=== PATIENT | female | born 1945 | race Caucasian/White ===

== ENCOUNTER 2025-09-28 14:39 | Observation (INO) ==
[2025-09-28] MEDS: SODIUM CHLORIDE 0.9% 500 ML IV SCH (15:27)
--- NOTE | 2025-09-28 15:31 | Emergency Department Note ---
Impression & Plan Syncope, Anemia, CHI (closed head injury) ED Provider Note NAME: SCOTT LIZARRAGA AGE: 80 SEX: F : 1945 ARRIVES VIA: Walk-In INFORMANT: Patient, ED PROVIDER(S): Tunde Cortes MD CHIEF COMPLAINT: Syncope MEDICAL DECISION MAKING: Patient presents due to concern for syncope. IV was established and blood work was obtained. Patient does have prior history of orthostatic hypotension but currently not hypotensive at the bedside. Patient did have a CT head and chest x-ray performed the patient did had a fall and head strike. Patient with a normal white count hemoglobin of 9.3 with a normal platelet count. The patient's kidney function is unremarkable. Patient with mild hyponatremia 134. Magnesium 1.6. Troponin negative. Patient CT head and chest x-ray are unremarkable. I did speak with Dr. Vasques and the patient was admitted for evaluation for syncope. Discussion w/ other healthcare providers: None Prior /Outside records reviewed: None Differential diagnosis: Vasovagal event, dehydration, infection, hypoglycemia, electrolyte abnormalities, arrhythmia, pulmonary embolism, seizure among others were considered. Diagnostics, as interpreted by me: ECG: Normal sinus rhythm, rate of 67, normal intervals, normal axis, T wave inversions in the lateral and high lateral leads. No obvious STEMI. Cardiac monitoring: An order was placed for continuous cardiac monitoring. The monitor shows a rate of 69 with sinus rhythm. Patient was placed on pulse oximetry Medical decision rules: Hart head CT rule Imaging studies: I informally interpreted the patient's chest x-ray does not show obvious pneumonia, cardiomegaly noted with formal report to follow. HPI: Patient presents due to concern for syncope. The patient reportedly was walking around her kitchen getting breakfast together when she passed out and fell striking her head on the tile floor. The patient reports that she was seen at [facility] had some blood work completed and was told that she may benefit from a colonoscopy as she had a mild change in her hemoglobin from 9.8-9.3. Patient reportedly may have had some occasional slurred speech this morning. She denied any prodromal symptoms. No nausea vomiting or diarrhea. PAST MEDICAL HISTORY: See Below PAST SURGICAL HISTORY: See Below SOCIAL HISTORY: See Below HOME MEDICATIONS: See Below ALLERGIES: See Below VITALS: See Below PHYSICAL EXAMINATION: GENERAL: NAD, non-toxic. EYE EXAM: Normal conjunctiva. PERRL, no anisocoria and EOM's grossly intact w/o pain. OROPHARYNX: Moist mucus membranes, grossly normal dentition. NECK: Trachea midline, no stridor. LUNGS: Clear to auscultation. Normal chest wall mechanics. HEART: NSR, no MRG. ABDOMEN: Abdomen soft, non-tender, no masses, no rebound or guarding. BACK: No CVA TTP. SKIN: No rashes and no bruising. UPPER EXTREMITIES: Upper extremities are grossly normal. LOWER EXTREMITIES: Grossly normal, no edema. NEURO EXAM: Awake and alert, follows commands, no obvious facial asymmetry, normal speech, moves all 4 extremities. 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 Other transient cerebral ischemic attacks and related syndromes Impacted cerumen of right ear Shortness of breath Chest pain Medical History Primary osteoarthritis, right ankle and foot DM w/o complication type II Social History Smoking Status: Never smoker Hx Alcohol Use: No Hx Substance Use: No Preferred Language: Panamanian Communication Ability: 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: No Beliefs That Will Affect Care: None Current Living Situation: Spouse and Family Current Living Situation Comment: Lives with daughter and Other Information That Helps Us Care for You: No Feels Safe at Home: Yes Safety Concerns: Feels Safe At This Time Assistive Devices: Cane and Walker Assistive Devices Comment: doesn't use but has it Allergies Allergies Allergy/AdvReac Type Severity Reaction Status Date / Time No Known Drug Allergies Allergy Unknown Verified 09/28/25 16:34 Home Meds Home Medications Medication Instructions Recorded Confirmed aspirin 81 mg tablet,delayed 81 mg PO DAILY 06/10/24 09/28/25 release carvedilol 25 mg tablet (Coreg) 25 mg PO BID 06/10/24 09/28/25 cholecalciferol (vitamin D3) 25 25 mcg PO DAILY 06/10/24 09/28/25 mcg (1,000 unit) capsule furosemide 20 mg tablet (Lasix) 20 mg PO DAILY 06/10/24 09/28/25 glipizide 2.5 mg tablet, extended 2.5 mg PO DAILY 06/10/24 09/28/25 release 24 hr losartan 100 mg tablet 100 mg PO DAILY 06/10/24 09/28/25 magnesium 200 mg tablet 400 mg PO DAILY 06/10/24 09/28/25 metformin 1,000 mg tablet 1,000 mg PO BID 06/10/24 09/28/25 potassium chloride 10 mEq 10 meq PO DAILY 06/10/24 09/28/25 capsule,extended release simvastatin 40 mg tablet 40 mg PO DAILY 06/10/24 09/28/25 omeprazole 40 mg capsule,delayed 40 mg PO BID 06/16/24 09/28/25 release cyanocobalamin (vitamin B-12) 1,000 mcg subcut MONTHLY 09/28/25 09/28/25 1,000 mcg/mL injection solution hydralazine 10 mg tablet 10 mg PO TID 09/28/25 09/28/25 Previous Rx's Medication Instructions Recorded syringe with needle 3 mL 25 x 5/8" #10 ea 10/06/24 (BD Eclipse Luer-Dimitry) carbidopa 25 mg-levodopa 100 mg See Rx Instructions PO .COMPLEX 07/21/25 tablet (Sinemet) #120 tabs Results & Data (ED) Vital Signs Vital Signs - 24 hr 09/28/25 14:45 09/28/25 15:14 09/28/25 15:24 Temperature 36.5 C Temperature Source Temporal Artery Scan Pulse Rate 66 63 Pulse Rate [Apical] Respiratory Rate 15 Respiratory Effort / Characteristics Non-Labored Spontaneous Respiratory Depth Normal Respiratory Pattern Regular Blood Pressure 128/75 Blood Pressure [Right Arm] Blood Pressure Mean 92 Blood Pressure Mean [Right Arm] Pulse Oximetry 98 98 Oxygen Delivery Method Room Air Room Air Sepsis Recent Fever Within 48 Hours No Sepsis New/Unexplained Change in Mental Status No Sepsis Action Taken by Nursing No Action Required 09/28/25 16:30 09/28/25 17:30 Temperature Temperature Source Pulse Rate Pulse Rate [Apical] 62 62 Respiratory Rate 16 16 Respiratory Effort / Characteristics Respiratory Depth Respiratory Pattern Blood Pressure Blood Pressure [Right Arm] 185/86 H 191/89 H Blood Pressure Mean Blood Pressure Mean [Right Arm] 119 123 Pulse Oximetry 98 97 Oxygen Delivery Method Room Air Room Air Sepsis Recent Fever Within 48 Hours Sepsis New/Unexplained Change in Mental Status Sepsis Action Taken by Residential Medications Current Medication List: was personally reviewed by me Laboratory Data Attestation: I reviewed the patient's lab results. 09/29/25 05:42 09/29/25 05:42 Lab Results 09/28/25 Range/Units 15:20 WBC 6.57 (4.8-10.8) K/ul RBC 3.86 L (4.20-5.40) M/uL Hgb 9.3 L (12.0-16.0) g/dL Hct 30.4 L (37.0-47.0) % MCV 78.8 L (80.0-100.0) fL MCH 24.1 L (25.0-34.0) pg MCHC 30.6 L (32.0-36.0) g/dL RDW Std Deviation 47.0 H (36.4-46.3) fL RDW Coeff of Louisa 16.5 H (11.5-14.5) % Plt Count 247 (130-400) K/uL MPV 10.4 (9.4-12.4) fL Immature Gran % (Auto) 0.6 % Neut % (Auto) 79.6 % Lymph % (Auto) 9.4 % [place] % (Auto) 8.5 % Eos % (Auto) 1.1 % Baso % (Auto) 0.8 % Neut # (Auto) 5.23 (1.40-6.50) K/uL Lymph # (Auto) 0.62 L (1.20-3.40) K/uL [place] # (Auto) 0.56 (0.11-0.59) K/uL Eos # (Auto) 0.07 (0.00-0.50) K/uL Baso # (Auto) 0.05 (0.00-0.20) K/uL Immature Gran # (Auto) 0.04 (0.01-0.20) K/uL Sodium 134 L (136-145) mmol/L Potassium 4.4 (3.5-5.1) mmol/L Chloride 96 L (98-107) mmol/L Carbon Dioxide 27 (21-32) mmol/L Anion Gap 11 (3-11) BUN 21 (6-23) mg/dl Creatinine 1.09 (0.6-1.2) mg/dl Est Cr Clr Drug Dosing Not Reportable eGFR 51.68 BUN/Creatinine Ratio 19.3 (10-20) Glucose 254 H (70-99(Fasting)) mg/dl Calcium 9.4 (8.6-10.3) mg/dl Magnesium 1.6 L (1.7-2.4) mg/dl Total Bilirubin 0.5 (0.2-1.0) mg/dl AST 21 (13-39) U/L ALT 6 L (7-52) U/L Alkaline Phosphatase 55 (34-104) U/L Troponin I High Sens 10.7 (0-14) pg/ml Total Protein 6.9 (6.0-8.3) gm/dl Albumin 4.1 (3.4-5.0) gm/dl Globulin 2.8 (2.5-4.0) gm/dl Albumin/Globulin Ratio 1.5 (0.9-2) TSH 1.337 (0.300-4.500) uIu/ml Administered Medications Aspirin (Aspirin 81 Mg Ectab) 81 mg PO DAILY [facility] Stop: 10/29/25 08:59 Last Admin: 09/29/25 08:05 Dose: 81 mg Documented By: OSCAR Carbidopa/Levodopa (Carbidopa/Levodopa 25/100mg Tab) 0.5 tab PO HS HERIBERTO Stop: 10/28/25 22:29 Last Admin: 09/28/25 22:50 Dose: 0.5 tab Documented By: MG Carbidopa/Levodopa (Carbidopa/Levodopa 25/100mg Tab) 1 tab PO BID@0900,1300 [facility] Stop: 10/29/25 08:59 Last Admin: 09/29/25 08:07 Dose: 1 tab Documented By: OSCAR Carvedilol (Carvedilol 25 Mg Tab) 25 mg PO BID HERIBERTO Stop: 10/28/25 22:13 Last Admin: 09/29/25 08:06 Dose: 25 mg [place]ed [place]: [facility]: 09/28/25 22:50 Dose: 25 mg Documented By: MG Heparin Sodium (Porcine) (Heparin Sod 5,000 Unit/0.5 Ml Vial) 5,000 units SQ Q12 [facility]IBERTO Stop: 10/28/25 22:13 Last Admin: 09/29/25 08:09 Dose: Not Given Documented By: [facility]: 09/28/25 22:51 Dose: Not Given Documented By: MG Hydralazine HCl (Hydralazine 10 Mg Tab) 10 mg PO TID HERIBERTO Stop: 10/28/25 22:13 Last Admin: 09/29/25 08:04 Dose: 10 mg Documented By: [facility]: 09/28/25 22:50 Dose: 10 mg Documented By: MG Sodium Chloride (Nss) 1,000 mls @ 75 mls/hr IV .[id number] [facility] Stop: 10/01/25 22:13 Last Admin: 09/28/25 22:51 Dose: 75 mls/hr Documented By: MG Insulin Aspart (Insulin Aspart Per Unit Charge) 0 units SC ACHS HERIBERTO Stop: 10/28/25 22:13 Last Admin: 09/28/25 22:51 Dose: Not Given Documented By: MG Losartan Potassium (Losartan Potassium 50 Mg Tab) 100 mg PO DAILY [facility] Stop: 10/29/25 08:59 Last Admin: 09/29/25 08:06 Dose: 100 mg Documented By: [facility] Magnesium Oxide (Magnesium Oxide 400 Mg Tab) 400 mg PO DAILY [facility]IBERTO Stop: 10/29/25 08:59 Last Admin: 09/29/25 08:07 Dose: 400 mg Documented By: [facility] Metformin HCl (Metformin Hcl 500 Mg Tab) 1,000 mg PO BIDM HERIBERTO Stop: 10/29/25 07:59 Last Admin: 09/29/25 08:05 Dose: 1,000 mg Documented By: [facility] Pantoprazole Sodium (Pantoprazole 40 Mg Tab) 40 mg PO BID HERIBERTO Stop: 10/28/25 22:29 Last Admin: 09/29/25 08:05 Dose: 40 mg Documented By: [facility] Admin: 09/28/25 22:50 Dose: 40 mg Documented By: MG Potassium Chloride (Potassium Chloride 10 Meq Tabcr) 10 meq PO DAILY [facility] Stop: 10/29/25 08:59 Last Admin: 09/29/25 08:25 Dose: 10 meq Documented By: OSCAR Simvastatin (Simvastatin 40 Mg Tab) 40 mg PO DAILY [facility] Stop: 10/29/25 08:59 Last Admin: 09/29/25 08:07 Dose: 40 mg Documented By: OSCAR Vitamin D (Cholecalciferol 25 Mcg (1000 Units) Tab) 25 mcg PO DAILY [facility] Stop: 10/29/25 08:59 Last Admin: 09/29/25 08:04 Dose: 25 mcg Documented By: OSCAR Discontinued Medications Hydralazine HCl (Hydralazine Hcl 20 Mg/Ml Vial) 10 mg IV NOW STA Stop: 09/28/25 18:12 Last Admin: 09/28/25 18:16 Dose: 10 mg Documented By: EUN Sodium Chloride (Nss) 500 mls @ 999 mls/hr IV .Q31M HERIBERTO Stop: 09/28/25 16:00 Last Infusion: 09/28/25 16:01 Dose: Infused Documented By: Admin: 09/28/25 15:27 Dose: 999 mls/hr Documented By: EUN Imaging Data Radiologist's Impression: Chest X-Ray 09/28/25 15:24 SINGLE VIEW CHEST CLINICAL HISTORY: Syncope FINDINGS: An AP, portable, upright chest radiograph is obtained. No prior studies are available for comparison at the time of dictation. The examination is degraded by portable technique and apical lordotic positioning. The heart is mildly enlarged noting atherosclerotic calcification of the thoracic aorta. The pulmonary vasculature is noncongested. There is bibasilar scarring/atelectasis. No airspace consolidation or large pleural effusion is identified. No pneumothorax is seen. The skeletal structures are osteopenic. The bony thorax is grossly intact. IMPRESSION: No acute cardiopulmonary abnormality is identified. ACT 112: Negative or not required by law. Electronically signed by: Juaquin Chan M.D. 09/28/2025 3:[address] 09/28/25 15:24 CT SCAN OF THE BRAIN WITHOUT IV CONTRAST CLINICAL HISTORY: Head injury. Syncope. COMPARISON STUDY: MRI of the brain dated 06/20/2023 TECHNIQUE: Unenhanced CT scan of the brain is performed from the vertex to the skull base. Images are reviewed in the axial, sagittal, coronal planes. A dose lowering technique was utilized adhering to the principles of ALARA. CT DOSE: 547.75 mGy.cm FINDINGS: Brain parenchyma: There is age-related involutional change noting advanced confluent subcortical and periventricular microangiopathic disease. There is no hemorrhage, mass effect, or evidence of acute territorial ischemia by CT criteria. Mcnair-white matter differentiation is preserved. No extra-axial fluid collection is seen. Ventricles, sulci, cisterns: Prominent secondary to involutional change. Ventriculomegaly is similar to previous. Intracranial vasculature: There is atherosclerotic calcification of the cavernous carotid and vertebral arteries. Calvarium: Unremarkable. Sinuses and mastoids: The visualized paranasal sinuses are clear. The mastoid air cells are well pneumatized. Orbits: The bony orbits are grossly intact. IMPRESSION: 1. There is no hemorrhage, mass effect, or evidence of acute territorial ischemia by CT criteria. 2. Ventriculomegaly is similar to previous. Correlate clinically for evidence of hydrocephalus. ACT 112: Negative or not required by law. Electronically signed by: Juaquin Chan M.D. 09/28/2025 3:57 PM Discharge Plan Visit Data Chief Complaint: Syncope Stated Complaint: FAINTED WITH LOSS OF CONSCOUSNESS ED Provider: Tunde Cortes Discharge Problem: Syncope, Anemia, CHI (closed head injury) Patient Disposition: Admitted As Inpatient Condition: Good Discharge Instructions Interventions: ED Discharge Assessment Last Done: 09/28/25 21:15 Discharge Problem: Syncope Qualifiers: Syncope type: unspecified Qualified Code(s): R55 - Syncope and collapse Anemia Qualifiers: Anemia type: unspecified type Qualified Code(s): D64.9 - Anemia, unspecified CHI (closed head injury) Qualifiers: Encounter type: initial encounter Qualified Code(s): S09.90XA - Unspecified injury of head, initial encounter
[2025-09-28 15:35] LABS: Hematocrit (blood only) 30.4 % (37.0-47.0); Hemoglobin 9.3 g/dL (12.0-16.0); Immature Granulocytes # (auto) 0.04 K/uL (0.01-0.20); Immature Granulocytes % (auto) 0.6 %; Mean Corpuscular Hemoglobin 24.1 pg (25.0-34.0); Mean Corpuscular Volume 78.8 fL (80.0-100.0); Platelet Count 247 K/uL (130-400); RDW Standard Deviation 47.0 fL (36.4-46.3); Red Blood Count 3.86 M/uL (4.20-5.40); White Blood Count 6.57 K/ul (4.8-10.8)
--- NOTE | 2025-09-28 15:45 | XRay Report ---
SINGLE VIEW CHEST CLINICAL HISTORY: Syncope FINDINGS: An AP, portable, upright chest radiograph is obtained. No prior studies are available for c omparison at the time of dictation. The examination is degraded by portable technique and apical lord otic positioning. The heart is mildly enlarged noting atherosclerotic calcification of the thoracic a yvette. The pulmonary vasculature is noncongested. There is bibasilar scarring/atelectasis. No airspace consolidation or large pleural effusion is identified. No pneumothorax is seen. The skeletal structu res are osteopenic. The bony thorax is grossly intact. IMPRESSION: No acute cardiopulmonary abnormality is identified. ACT 112: Negative or not required by law. Electronically signed by: Juaquin Chan M.D. 09/28/2025 3:44 PM
[2025-09-28 15:55] LABS: Alanine Aminotransferase 6 U/L (7-52); Albumin Globulin Ratio 1.5 (0.9-2); Albumin Level 4.1 gm/dl (3.4-5.0); Alkaline Phosphatase 55 U/L (34-104); Anion Gap 11 (3-11); Bilirubin,Total 0.5 mg/dl (0.2-1.0); Blood Urea Nitrogen 21 mg/dl (6-23); Calcium 9.4 mg/dl (8.6-10.3); Carbon Dioxide 27 mmol/L (21-32); Chloride 96 mmol/L (98-107); Globulin 2.8 gm/dl (2.5-4.0); Glucose 254 mg/dl (70-99(Fasting)); Magnesium 1.6 mg/dl (1.7-2.4); Potassium 4.4 mmol/L (3.5-5.1); Sodium 134 mmol/L (136-145); Total Protein 6.9 gm/dl (6.0-8.3)
--- NOTE | 2025-09-28 15:58 | CT Scan Report ---
CT SCAN OF THE BRAIN WITHOUT IV CONTRAST CLINICAL HISTORY: Head injury. Syncope. COMPARISON STUDY: MRI of the brain dated 06/20/2023 TECHNIQUE: Unenhanced CT scan of the brain is performed from the vertex to the skull base. Images are reviewed in the axial, sagittal, coronal planes. A dose lowering technique was utilized adhering to the principles of ALARA. CT DOSE: 547.75 mGy.cm FINDINGS: Brain parenchyma: There is age-related involutional change noting advanced confluent subcortical and periventricular microangiopathic disease. There is no hemorrhage, mass effect, or evidence of acute t erritorial ischemia by CT criteria. Mcnair-white matter differentiation is preserved. No extra-axial fl uid collection is seen. Ventricles, sulci, cisterns: Prominent secondary to involutional change. Ventriculomegaly is similar to previous. Intracranial vasculature: There is atherosclerotic calcification of the cavernous carotid and vertebr al arteries. Calvarium: Unremarkable. Sinuses and mastoids: The visualized paranasal sinuses are clear. The mastoid air cells are well pneu matized. Orbits: The bony orbits are grossly intact. IMPRESSION: 1. There is no hemorrhage, mass effect, or evidence of acute territorial ischemia by CT criteria. 2. Ventriculomegaly is similar to previous. Correlate clinically for evidence of hydrocephalus. ACT 112: Negative or not required by law. Electronically signed by: Juaquin Chan M.D. 09/28/2025 3:57 PM
[2025-09-28 16:10] LABS: Thyroid Stimulating Hormone 1.337 uIu/ml (0.300-4.500)
--- NOTE | 2025-09-28 16:21 | History & Physical Report ---
Date of Service September 28, 2025 Assessment & Plan (1) Cerebral vascular disease: (2) Parkinsonism: (3) Orthostatic hypotension: (4) GERD (gastroesophageal reflux disease): (5) Type 2 diabetes mellitus with hyperglycemia: (6) Chronic right heart failure: (7) Primary osteoarthritis, right ankle and foot: (8) DM w/o complication type II: Plan #Syncope and collapse #Closed head injury - Uncertain etiology, longstanding history of orthostatic hypotension. Had a very similar episode 3 or 4 years ago and initially diagnosed the orthostatic hypotension - Anemia is about at its baseline. No recent medication changes. Immediate history consistent with vasovagal syncope - Fluid resuscitation in the ED, CT imaging negative, she is back to her baseline - Continue with neurochecks gentle resuscitation through the night, monitor blood pressure for lability. Orthostatic vital signs in the morning - Monitor for signs and symptoms of postconcussion syndrome #Hypertension -History of orthostatic hypotension, missed all of her morning medications. Blood pressure is elevated on arrival - Restarted Dralzine, restart regular antihypertensives. - May be reasonable as with her losartan into twice daily dosing, already on hydralazine will continue - hold lasic for short term #CKD - At her baseline #Parkinsonism -sinemet #Hyponatremia - Normal saline during initial ED visit, recheck in the morning #Hyperglycemia #DM2 - Sliding scale initiated, ACHS checks - If this has been elevated likely causing some secondary dehydration worsening history of orthostasis -contineu metformin #Hypomagnesemia - Mild continue oral supplement #FEN -Heart healthy/diabetic diet #CODE STATUS - full code per her wishes, discussed at the time of admission History of Present Illness Chief Complaint: Syncope Primary Care Provider: Alexi Tatum 80-year-old female history of prior CVA, orthostatic hypotension, parkinsonism, type 2 diabetes, chronic right heart failure, hypertension, anxiety presents to the emergency department after a syncopal episode this morning. Reportedly was in her home in the kitchen when she had the event. She did fall reportedly suffered as minor head strike on the tile floor. Fall was witnessed by her daughter who is at the bedside. Brief loss of consciousness for a few seconds. Brief episode of confusion but after 1-2 minutes she was entirely back to her normal baseline. Secondary to this she was brought to the emergency department for evaluation. Initial evaluation in the emergency department showed largely unremarkable vital signs. Head CT was completed unremarkable. Chest x-ray showed no clear cause. She does have some mild chronic anemia that appears to be stable in comparison to prior. she reports no antecedent illness or other recent medication changes. At this time she feels a little unsafe little unsteady. She was seen at [facility] earlier in the day and they did a routine workup with no further recommendations. And is uncomfortable. Patient feels unsteady unable to complete independently and safely. She was referred for admission for further cardiac monitoring, PT OT evaluation, echocardiogram and serial troponins Allergies Allergy/AdvReac Type Severity Reaction Status Date / Time No Known Drug Allergies Allergy Unknown Verified 09/28/25 16:34 Home Medications Medication Instructions Recorded Confirmed Type aspirin 81 mg tablet,delayed 81 mg PO DAILY 06/10/24 09/28/25 History release carvedilol 25 mg tablet (Coreg) 25 mg PO BID 06/10/24 09/28/25 History cholecalciferol (vitamin D3) 25 25 mcg PO DAILY 06/10/24 09/28/25 History mcg (1,000 unit) capsule furosemide 20 mg tablet (Lasix) 20 mg PO DAILY 06/10/24 09/28/25 History glipizide 2.5 mg tablet, extended 2.5 mg PO DAILY 06/10/24 09/28/25 History release 24 hr losartan 100 mg tablet 100 mg PO DAILY 06/10/24 09/28/25 History magnesium 200 mg tablet 400 mg PO DAILY 06/10/24 09/28/25 History metformin 1,000 mg tablet 1,000 mg PO BID 06/10/24 09/28/25 History potassium chloride 10 mEq 10 meq PO DAILY 06/10/24 09/28/25 History capsule,extended release simvastatin 40 mg tablet 40 mg PO DAILY 06/10/24 09/28/25 History omeprazole 40 mg capsule,delayed 40 mg PO BID 06/16/24 09/28/25 History release syringe with needle 3 mL 25 x 5/8" #10 ea 10/06/24 07/21/25 Rx (BD Eclipse Luer-Dimitry) carbidopa 25 mg-levodopa 100 mg See Rx Instructions PO .COMPLEX 07/21/25 09/28/25 Rx tablet (Sinemet) #120 tabs cyanocobalamin (vitamin B-12) 1,000 mcg subcut MONTHLY 09/28/25 09/28/25 History 1,000 mcg/mL injection solution hydralazine 10 mg tablet 10 mg PO TID 09/28/25 09/28/25 History Past Med/Surg History Problem List (Updated 01/09/25 @ 10:11 by Angelica Jones PA-C) Cerebral vascular disease B12 deficiency Ataxia Parkinsonism Cerebral atrophy Tremor Orthostatic hypotension Anxiety Benign essential hypertension Localized edema Cerebral ischemia Dizziness and giddiness Acute on chronic systolic (congestive) heart failure Other specified abnormal findings of blood chemistry GERD (gastroesophageal reflux disease) Mixed hypoglycemia Type 2 diabetes mellitus with hyperglycemia IBS (irritable bowel syndrome) Chronic right heart failure Acute on chronic combined systolic (congestive) and diastolic (congestive) heart failure Asymptomatic varicose veins of right lower extremity Other transient cerebral ischemic attacks and related syndromes Impacted cerumen of right ear Shortness of breath Chest pain Medical History (Updated 01/09/25 @ 10:11 by Angelica Jones PA-C) Primary osteoarthritis, right ankle and foot DM w/o complication type II Social History Smoking Status: Never smoker Preferred Language: Icelandic Feels Safe at Home: Yes Review of Systems Review of Systems: No recent illness, no recent medication changes. No antecedent symptoms immediately prior to or after the fall. Otherwise full review of systems conducted and was negative Physical Exam Physical Exam: GENERAL: A&O, NAD, Pleasant HEENT: NCAT, PERRL, EOMI, sclera clear Neck: No midline tenderness, no adenopathy CV: RRR, No MRG RESP: CTAB ABD: NT/ND, normal bowel sounds EXTR: No edema, chronic lesion on right ankle Results & Data Results & Data Vital Signs (Past 12 Hours) Vital Signs Temp Pulse Resp BP Pulse Ox O2 Del Method 09/28/25 15:24 98 Room Air 09/28/25 15:14 63 09/28/25 14:45 36.5 C 66 15 128/75 98 Room Air Laboratory Results 09/28/25 15:20 WBC 6.57 RBC 3.86 L Hgb 9.3 L Hct 30.4 L MCV 78.8 L MCH 24.1 L MCHC 30.6 L RDW Std Deviation 47.0 H RDW Coeff of [place] 16.5 H Plt Count 247 MPV 10.4 Immature Gran % (Auto) 0.6 Neut % (Auto) 79.6 Lymph % (Auto) 9.4 [place] % (Auto) 8.5 Eos % (Auto) 1.1 Baso % (Auto) 0.8 Neut # (Auto) 5.23 Lymph # (Auto) 0.62 L [place] # (Auto) 0.56 Eos # (Auto) 0.07 Baso # (Auto) 0.05 Immature Gran # (Auto) 0.04 Sodium 134 L Potassium 4.4 Chloride 96 L Carbon Dioxide 27 Anion Gap 11 BUN 21 Creatinine 1.09 Est Cr Clr Drug Dosing Not Reportable eGFR 51.68 BUN/Creatinine Ratio 19.3 Glucose 254 H Calcium 9.4 Magnesium 1.6 L Total Bilirubin 0.5 AST 21 ALT 6 L Alkaline Phosphatase 55 Troponin I High Sens 10.7 Total Protein 6.9 Albumin 4.1 Globulin 2.8 Albumin/Globulin Ratio 1.5 TSH 1.337 Diagnostic Findings Chest X-Ray 09/28/25 15:24 SINGLE VIEW CHEST CLINICAL HISTORY: Syncope FINDINGS: An AP, portable, upright chest radiograph is obtained. No prior studies are available for comparison at the time of dictation. The examination is degraded by portable technique and apical lordotic positioning. The heart is mildly enlarged noting atherosclerotic calcification of the thoracic aorta. The pulmonary vasculature is noncongested. There is bibasilar scarring/atelectasis. No airspace consolidation or large pleural effusion is identified. No pneumothorax is seen. The skeletal structures are osteopenic. The bony thorax is grossly intact. IMPRESSION: No acute cardiopulmonary abnormality is identified. ACT 112: Negative or not required by law. Electronically signed by: Juaquin Chan M.D. 09/28/2025 3:[address] 09/28/25 15:24 CT SCAN OF THE BRAIN WITHOUT IV CONTRAST CLINICAL HISTORY: Head injury. Syncope. COMPARISON STUDY: MRI of the brain dated 06/20/2023 TECHNIQUE: Unenhanced CT scan of the brain is performed from the vertex to the skull base. Images are reviewed in the axial, sagittal, coronal planes. A dose lowering technique was utilized adhering to the principles of ALARA. CT DOSE: 547.75 mGy.cm FINDINGS: Brain parenchyma: There is age-related involutional change noting advanced confluent subcortical and periventricular microangiopathic disease. There is no hemorrhage, mass effect, or evidence of acute territorial ischemia by CT criteria. Mcnair-white matter differentiation is preserved. No extra-axial fluid collection is seen. Ventricles, sulci, cisterns: Prominent secondary to involutional change. Ventriculomegaly is similar to previous. Intracranial vasculature: There is atherosclerotic calcification of the cavernous carotid and vertebral arteries. Calvarium: Unremarkable. Sinuses and mastoids: The visualized paranasal sinuses are clear. The mastoid air cells are well pneumatized. Orbits: The bony orbits are grossly intact. IMPRESSION: 1. There is no hemorrhage, mass effect, or evidence of acute territorial ischemia by CT criteria. 2. Ventriculomegaly is similar to previous. Correlate clinically for evidence of hydrocephalus. ACT 112: Negative or not required by law. Electronically signed by: Juaquin Chan M.D. 09/28/2025 3:57 PM PG Care Time/CCT Total # of Minutes Spent Total Time Spent with Patient: Total time spent is greater than 50% in coordination of care (as documented) at patient's floor/unit and/or counseling patient: Coding Level of Care Code 10175 INT INP/OBS CARE 2/55MIN Diagnoses Cerebral vascular disease I67.9 Parkinsonism G20.C Orthostatic hypotension I95.1 GERD (gastroesophageal reflux disease) K21.9 Type 2 diabetes mellitus with hyperglycemia E11.65 Chronic right heart failure I50.812 Primary osteoarthritis, right ankle and foot M19.071 DM w/o complication type II E11.9
[2025-09-28] MEDS ORDERED: ACETAMINOPHEN 325 MG TAB PO PRN (22:14)
[2025-09-28] MEDS ORDERED: GLUCOSE 40% GEL 15 GM TUBE PO PRN (22:14)
[2025-09-28] MEDS ORDERED: GLUCAGON FOR INJ 1 MG VIAL SQ PRN (22:14)
[2025-09-28] MEDS ORDERED: GLUCOSE 10 TAB/TUBE PO PRN (22:14)
[2025-09-28] MEDS ORDERED: CARBOHYDRATES FOR HYPOGLYCEMIA PO PRN (22:14)
[2025-09-28] MEDS ORDERED: ONDANSETRON INJ 2 MG/ML 2 ML VIAL IV PRN (22:14)
[2025-09-28] MEDS ORDERED: DEXTROSE 50% 50 ML SYRINGE IV PRN (22:14)
[2025-09-28] MEDS: CARBIDOPA/LEVODOPA 25/100MG TAB PO SCH (22:50)
[2025-09-28] MEDS: hydrALAZINE 10 MG TAB PO SCH (22:50)
[2025-09-28] MEDS: INSULIN ASPART PER UNIT CHARGE SC SCH (22:51)
[2025-09-28] MEDS: SODIUM CHLORIDE 0.9% 1,000 ML IV SCH (22:51)
[2025-09-28] MEDS: HEPARIN SOD 5,000 UNIT/0.5 ML VIAL SQ SCH (22:51)
[2025-09-29 03:44] VITALS: RESP 18
[2025-09-29 06:19] LABS: Hematocrit (blood only) 26.7 % (37.0-47.0); Hemoglobin 8.4 g/dL (12.0-16.0); Immature Granulocytes # (auto) 0.02 K/uL (0.01-0.20); Immature Granulocytes % (auto) 0.3 %; Mean Corpuscular Hemoglobin 24.3 pg (25.0-34.0); Mean Corpuscular Volume 77.4 fL (80.0-100.0); Platelet Count 214 K/uL (130-400); RDW Standard Deviation 46.5 fL (36.4-46.3); Red Blood Count 3.45 M/uL (4.20-5.40); White Blood Count 6.34 K/ul (4.8-10.8)
[2025-09-29 06:57] LABS: Alanine Aminotransferase 5 U/L (7-52); Albumin Globulin Ratio 1.5 (0.9-2); Albumin Level 3.7 gm/dl (3.4-5.0); Alkaline Phosphatase 47 U/L (34-104); Anion Gap 9 (3-11); Bilirubin,Total 0.5 mg/dl (0.2-1.0); Blood Urea Nitrogen 19 mg/dl (6-23); Calcium 9.0 mg/dl (8.6-10.3); Carbon Dioxide 27 mmol/L (21-32); Chloride 101 mmol/L (98-107); Creatinine Clr Calc Pharmacy 45.3 ml/min; Globulin 2.4 gm/dl (2.5-4.0); Glucose 76 mg/dl (70-99(Fasting)); Magnesium 1.7 mg/dl (1.7-2.4); Potassium 4.3 mmol/L (3.5-5.1); Sodium 137 mmol/L (136-145); Total Protein 6.1 gm/dl (6.0-8.3)
[2025-09-29 07:51] VITALS: BP 186/79; TEMP 98.4; O2SAT 95
[2025-09-29] MEDS: CHOLECALCIFEROL 25 MCG (1000 UNITS) TAB PO SCH (08:04)
[2025-09-29] MEDS: ASPIRIN 81 MG ECTAB PO SCH (08:05)
[2025-09-29] MEDS: LOSARTAN POTASSIUM 50 MG TAB PO SCH (08:06)
[2025-09-29] MEDS: SIMVASTATIN 40 MG TAB PO SCH (08:07)
[2025-09-29] MEDS: MAGNESIUM OXIDE 400 MG TAB PO SCH (08:07)
[2025-09-29] MEDS: CARBIDOPA/LEVODOPA 25/100MG TAB PO SCH (08:07)
[2025-09-29] MEDS: POTASSIUM CHLORIDE 10 MEQ TABCR PO SCH (08:25)
[2025-09-29] MEDS ORDERED: INFLUENZA VACC TS2025-26(65y+)/PF (IIV3) 0.5mL Syr IM ONE (09:00)
--- NOTE | 2025-09-29 15:09 | Discharge Summary ---
Discharge Summary Date of Service September 29, 2025 Principal Dx & Hospital Course #1 = Principal Diagnosis (1) Cerebral vascular disease: (2) Parkinsonism: (3) Orthostatic hypotension: (4) GERD (gastroesophageal reflux disease): (5) Type 2 diabetes mellitus with hyperglycemia: (6) Chronic right heart failure: (7) Primary osteoarthritis, right ankle and foot: (8) DM w/o complication type II: Plan #Syncope and collapse #Closed head injury - Uncertain etiology, longstanding history of orthostatic hypotension. Had a very similar episode 3 or 4 years ago and initially diagnosed the orthostatic hypotension - Anemia is about at its baseline. No recent medication changes. Immediate history consistent with vasovagal syncope - Fluid resuscitation in the ED, CT imaging negative, she is back to her baseline - No sequelae from her close head injury. Briefly discussed postconcussion syndrome type symptoms. Handout was given on what to watch for. - I think she was volume down on admission, presentation and consistent with vasovagal syncope in the setting of orthostatic hypotension. No recurrence. Stable for the last 24 hours of hospital stay. Patient has had at least 1 prior episode very similar to this. See orthostatic hypotension as below #Hypertension #History of orthostatic hypotension - Restarted hydralazine, restart regular antihypertensives. - May be reasonable as with her losartan into twice daily dosing, already on hydralazine will continue - hold lasix for short term - After initial hospitalization her blood pressure readings were somewhat labile ranging from 130 systolic to 180 systolic. most commonly around 140. Midday the day of discharge she was running in the mid 140s. Orthostatic vital signs were completed and showed no significant tachycardia or decrease in her systolic blood pressures. - She will require some degree of permissive hypertension. If we keep her around 140 she does have labile readings into the 120s and as high as 180s. That may be as well as we can do. I asked her to follow-up close in the outpatient setting to maybe divide her blood pressure medications in the morning and evening doses to hopefully minimize the lability. Otherwise cautioned her on signs and symptoms of orthostatic hypotension. She has had episodes like this pass. family is supportive and she will be cautious in the initial discharge until she is seen in follow-up. Advised that if she has any recurrence of the symptoms feels woozy weak or unsteady that she should call the emergency department or the primary clinic for recheck and evaluation of her blood pressures. - Of note her last BP on file here from this morning was 186/79. Recheck was in the 140 systolic range. Midday orthostatic vital signs were completed and 166/78 sitting, 143/72 standing, 147/73 standing. She had no symptoms at this time. Heart rate was 66, 68, 69 respectively. - As above, not certain that we can meaningfully lower blood pressure at baseline much without worsening triggers of the orthostasis. She is back to her baseline appropriate for discharge and outpatient management. #CKD - At her baseline #Parkinsonism -sinemet #Hyponatremia - Normal saline during initial ED visit, recheck in the morning #Hyperglycemia #DM2 - Sliding scale initiated, ACHS checks - If this has been elevated likely causing some secondary dehydration worsening history of orthostasis -contineu metformin #Hypomagnesemia - Mild continue oral supplement #FEN -Heart healthy/diabetic diet #CODE STATUS - full code per her wishes, discussed at the time of admission Admission HPI Per Admitting Provider 80-year-old female history of prior CVA, orthostatic hypotension, parkinsonism, type 2 diabetes, chronic right heart failure, hypertension, anxiety presents to the emergency department after a syncopal episode this morning. Reportedly was in her home in the kitchen when she had the event. She did fall reportedly suffered as minor head strike on the tile floor. Fall was witnessed by her daughter who is at the bedside. Brief loss of consciousness for a few seconds. Brief episode of confusion but after 1-2 minutes she was entirely back to her normal baseline. Secondary to this she was brought to the emergency department for evaluation. Initial evaluation in the emergency department showed largely unremarkable vital signs. Head CT was completed unremarkable. Chest x-ray showed no clear cause. She does have some mild chronic anemia that appears to be stable in comparison to prior. she reports no antecedent illness or other recent medication changes. At this time she feels a little unsafe little unsteady. She was seen at [facility] earlier in the day and they did a routine workup with no further recommendations. And is uncomfortable. Patient feels unsteady unable to complete independently and safely. She was referred for admission for further cardiac monitoring, PT OT evaluation, echocardiogram and serial troponins Discharge Exam GENERAL: A&O, NAD, Pleasant HEENT: NCAT, PERRL, EOMI, sclera clear Neck: No midline tenderness, no adenopathy CV: RRR, No MRG RESP: CTAB ABD: NT/ND, normal bowel sounds EXTR: No edema, chronic lesion on right ankle Discharge Plan Discharge Items Patient Disposition: Home - Self-Care Reason For Visit: SYNCOPE Discharge Diagnosis: Syncope, Hypertension Condition on Discharge: Good Health Concerns: - Continue your home medication as prescribed with no change at this time. - Please follow-up with primary clinic-as soon as possible preferably within 7 days to discuss your blood pressure medications and management - Given the up-and-down nature of your blood pressure readings and your history of orthostatic hypotension your blood pressure will be elevated, consideration to splitting your medication doses in the morning and evening even your blood pressure readings would be beneficial - If your readings are persistently over 180 systolic or lower than 100 systolic please contact the emergency department or your primary clinic for further instructions or evaluation of - When you hit your head you may have sustained a mild concussion. If you start to develop dizziness, headaches, vision changes or other new symptoms please contact the outpatient clinic for recheck and follow-up. Otherwise follow-up in 1 week as above to discuss your blood pressure medications Activity: Per Instructions section Lifting: Gradually increase as tolerated Non-emergency contact: Primary Care Provider Call non-emergency contact if: you have any medication questions, your symptoms worsen and your pain is not controlled Follow-up/Referrals: Alexi Tatum [Primary Care Provider] - Diet: Heart Healthy Addtl Attending Provider Instructions: Follow-up within 7 days to discuss blood pressure medication management in the setting of orthostatic hypotension. Pending Studies at Discharge: No Stand-Alone Forms: My [facility] [email or web address], Smoking Cessation Medications and DC Order Prescriptions: Continued (DME) BD Eclipse Luer-Dimitry 3 mL 25 x 5/8" syringe See Rx Instructions .ROUTE .MEDSUPPLY Qty: 10 2RF Rx Instructions: As directed with Vitamin B12 injections furosemide [Lasix] 20 mg tablet 20 mg PO DAILY carvedilol [Coreg] 25 mg tablet 25 mg PO BID Rx Instructions: must administer with a meal/food metformin 1,000 mg tablet 1,000 mg PO BID losartan 100 mg tablet 100 mg PO DAILY potassium chloride 10 mEq capsule, extended release 10 meq PO DAILY aspirin 81 mg tablet,delayed release (DR/EC) 81 mg PO DAILY glipizide 2.5 mg tablet extended release 24hr 2.5 mg PO DAILY magnesium 200 mg tablet 400 mg PO DAILY cholecalciferol (vitamin D3) 25 mcg (1,000 unit) capsule 25 mcg PO DAILY simvastatin 40 mg tablet 40 mg PO DAILY omeprazole 40 mg capsule,delayed release(DR/EC) 40 mg PO BID carbidopa-levodopa [Sinemet] 25-100 mg tablet See Rx Instructions PO .COMPLEX Qty: 120 5RF Rx Instructions: 1 qam, 1 afternoon, 0.5 tab po qpm hydralazine 10 mg tablet 10 mg PO TID cyanocobalamin (vitamin B-12) 1,000 mcg/mL solution 1,000 mcg subcut MONTHLY Patient Comments: 09/28- due for shot next week Discharge Orders: Discharge Order (Routine); Ordered 09/29/25 Ordered By: Vadim Srinivasan/Other Patient Handouts: After a Concussion, Orthostatic Hypotension Admission Data Admit Date/Time: 09/28/25 18:28 Attending Provider: Vadim Vasques Admit Provider: Vadim Vasques Primary Care Provider: Alexi Tatum Other Providers: Vadim Vasques Hospital Stay Data Consultations 09/28/25 16:11 ED Decision to Admit Stat Diagnostic Imagining Performed 09/28/25 15:24 CT head/brain wo con Stat Pending Results Patient Have Any Pending Studies at Discharge: No Discharge Instructions Given to Patient (Per Discharging Provider) Follow-up within 7 days to discuss blood pressure medication management in the setting of orthostatic hypotension. Total Time Total Time Spent Total Time Spent (In Minutes): 38 minutes spent at the bedside discussing results and modifications to care plan with patient. Arrangements for prescription on discharge. Reviewing new medications, discharge planning and follow-up coordination Coding Level of Care Code 67504 INP/OBS DISCH >30 MIN Diagnoses Cerebral vascular disease I67.9 Parkinsonism G20.C Orthostatic hypotension I95.1 GERD (gastroesophageal reflux disease) K21.9 Type 2 diabetes mellitus with hyperglycemia E11.65 Chronic right heart failure I50.812 Primary osteoarthritis, right ankle and foot M19.071 DM w/o complication type II E11.9
[2025-09-29 15:39] VITALS: PULSE 70
== END 2025-09-29 16:44 | disposition home or self-care (01) ==
LOC: SUATTDRO → ED 14:39 → 2N 14:39